=== PATIENT | male | born 1970 | race Caucasian/White ===

== ENCOUNTER 2020-02-07 13:31 | Inpatient (IN) ==
[~2020-02-07 13:31] MED LIST: Povidone-Iodine 45 ML, Sodium Chloride IRRigation 1,000 ML IR ONE
[2020-02-07] MEDS ORDERED: CeFAZolin Syr 3,000MG/30 ML 3,000 MG/30 ML SYRINGE IVPB ONE (14:07)
[2020-02-07] MEDS ORDERED: Ringers Solution, Lactated 1,000 ML IVC SCH (14:15)
[2020-02-07] MEDS ORDERED: Acetaminophen IV 1,000 MG/100 ML INFUS..BTL IVPB ONE (15:55)
[2020-02-07] MEDS ORDERED: Lidocaine OINT 35.44 GM TUBE TP ONE (16:34)
[2020-02-07] MEDS ORDERED: Lidocaine TOPICAL Soln 50 ML BOTTLE ONE ×2 (16:34→16:35)
[2020-02-07] MEDS ORDERED: *HR* Midazolam HCl 2 MG/2 ML VIAL ONE (16:54)
[2020-02-07] MEDS ORDERED: *HR* FentaNYL (PF) 100 MCG/2 ML VIAL ONE (16:54)
[2020-02-07] MEDS ORDERED: *HR* Propofol 200 MG/20 ML VIAL IVP ONE ×2 (16:55→18:22)
[2020-02-07] MEDS ORDERED: Lidocaine HCL 4 ML Topical Solution (Laryng-O-Jet Kit Sterile Pak) TP ONE (16:57)
[2020-02-07] MEDS ORDERED: Ondansetron 4 MG/2 ML VIAL ONE ×2 (16:57→17:46)
[2020-02-07] MEDS ORDERED: Dexamethasone 4 MG/ML VIAL ONE ×2 (16:57→18:35)
[2020-02-07] MEDS ORDERED: *HR* Rocuronium Bromide 50 MG/5 ML VIAL ONE (16:57)
[2020-02-07] MEDS ORDERED: Ropivacaine/PF 0.5% 30 ML VIAL ONE (17:29)
[2020-02-07] MEDS ORDERED: Acetaminophen IV 1,000 MG/100 ML INFUS..BTL ONE (17:29)
[2020-02-07] MEDS ORDERED: Famotidine 20 MG/2 ML VIAL ONE (17:30)
[2020-02-07] MEDS ORDERED: Vancomycin 1,000 MG VIAL ONE (17:36)
[2020-02-07] MEDS ORDERED: Ethanol\\Acetic Acid\\Na Ace\\Ben 1,000 ML IRRIG.SOLN IR ONE (17:43)
[2020-02-07] MEDS ORDERED: Lidocaine -MPF 2% 2 ML VIAL ONE (17:46)
[2020-02-07] MEDS ORDERED: *HR* Succinylcholine 200 MG/10 ML VIAL IVP ONE (17:46)
[2020-02-07] MEDS ORDERED: *HR* Enoxaparin 30 MG/0.3 ML SYRINGE SQ SCH (18:00)
[2020-02-07] MEDS ORDERED: *HR* PHENYLEPHRINE 1,000 MCG/10 ML SYRINGE IVP ONE (18:40)
[2020-02-07] MEDS ORDERED: flumazeniL 0.5 MG/5 ML VIAL IVP ONE (19:12)
[2020-02-07] MEDS: *HR* HYDROmorphone PF 0.5 MG/0.5 ML SYRINGE IVP PRN ×4 (19:48→20:06)
[2020-02-07 20:30] LABS: Hematocrit 41.2 % (37.5-50.1); Hemoglobin 13.8 g/dL (12.9-16.9)
[2020-02-07] MEDS ORDERED: Dextrose Gel 15 GM/37.5 ML TUBE PO PRN ×2 (20:48)
[2020-02-07] MEDS ORDERED: Sennosides 8.6 MG TABLET PO PRN (20:48)
[2020-02-07] MEDS ORDERED: MOM Conc 10 ML UD.LIQ PO PRN (20:48)
[2020-02-07] MEDS ORDERED: Ondansetron 4 MG/2 ML VIAL IVP PRN (20:48)
[2020-02-07] MEDS ORDERED: *HR* Dextrose 50 % in Water (Vial) 50 ML VIAL IVP PRN (20:48)
[2020-02-07] MEDS ORDERED: D5% in Water 1,000 ML IVC PRN (20:48)
[2020-02-07] MEDS ORDERED: *HR* OxyCODONE Immed Rel 5 MG TABLET PO PRN (20:48)
[2020-02-07] MEDS ORDERED: Naloxone 0.4 MG/ML INJ IVP PRN (20:48)
[2020-02-07] MEDS ORDERED: *HR* Enoxaparin 30 MG/0.3 ML SYRINGE SQ ONE (21:48)
[2020-02-07] MEDS ORDERED: *HR* Enoxaparin 40 MG/0.4 ML SYRINGE SQ ONE (21:52)
[2020-02-08] MEDS: Insulin LISPRO 300 UNITS/3 ML VIAL SQ SCH ×2 (00:33→00:50)
[2020-02-08] MEDS: ceFAZolin 3,000 MG in 0.9 % Sodium Chloride 100 ML IVPB SCH ×2 (00:33→08:13)
[2020-02-08] MEDS: Ringers Solution, Lactated 1,000 ML IVC SCH ×2 (00:34→04:06)
[2020-02-08] MEDS: *HR* OxyCODONE/APAP 5/325 TABLET PO PRN ×2 (00:39→08:20)
[2020-02-08 02:51] LABS: Hematocrit 40.6 % (37.5-50.1); Hemoglobin 13.8 g/dL (12.9-16.9)
[2020-02-08 03:09] LABS: BUN/Creatinine Ratio 16 (6-26); Blood Urea Nitrogen 17 mg/dL (6-20); Calcium 8.4 mg/dL (8.6-10.3); Carbon Dioxide 21 mEq/L (23-29); Chloride 102 mEq/L (98-107); Glucose 319 mg/dL (70-105); Osmolality,Calculated 290 (280-300); Potassium 4.5 mEq/L (3.5-5.1); Sodium 133 mEq/L (136-145); eGFR For African Americans > 60 (> 60); eGFR For Non-African Americans > 60 (> 60)
[2020-02-08] MEDS ORDERED: *HR* Enoxaparin 30 MG/0.3 ML SYRINGE SQ SCH (06:00)
[2020-02-08 07:04] VITALS: BP 111/67
[2020-02-08] MEDS ORDERED: Insulin LISPRO 300 UNITS/3 ML VIAL SQ SCH (07:30)
[2020-02-08] MEDS ORDERED: *HR* GlyBURIDE 5 MG TABLET PO SCH (08:00)
[2020-02-08] MEDS ORDERED: lisinopriL 10 MG TABLET PO SCH (09:00)
== END 2020-02-08 10:45 | disposition home or self-care (01) | DRG 483 ==
LOC: SAMDAY 13:31 → 3NENU 20:42
PROVIDERS: ADMIT Orthopaedic Surgery; ATTEND Orthopaedic Surgery